=== PATIENT | male | born 1980 | race Two or more races ===

== ENCOUNTER → 2017-09-30 | Outpatient (CLI) | payer MEDICAID | END | disposition home or self-care (01) | LOC: RAD 15:03 | PROVIDERS: ATTEND Family Medicine | DX: N50.89 Other specified disorders of the male genital organs (principal); N50.82 Scrotal pain | CPT/HCPCS: 76857; 76870; 93975 ==

== ENCOUNTER → 2017-10-04 | Outpatient (CLI) | payer MEDICAID ==
[~2017-10-04] MED LIST: OMNIPAQUE 350 MG/ML, 100ML BOTTLE ONE
== END | disposition home or self-care (01) ==
LOC: RAD 11:26
PROVIDERS: ATTEND Urology
DX: N50.9 Disorder of male genital organs, unspecified (principal); C62.90 Malignant neoplasm of unspecified testis, unspecified whether descended or undescended
CPT/HCPCS: 71260; 74177; Q9967

== ENCOUNTER 2018-08-08 19:45 | Emergency (ER) | payer MEDICAID ==
[~2018-08-08] VITALS: Ht 177.8 cm; Wt 83.6 kg
[2018-08-08 20:12] VITALS: BP 135/82
--- NOTE | 2018-08-08 20:42 | NUR ---
PT PRESENTED WITH C/O TESTICULAR PAIN, SWELLING, REDNESS, HAS H/X OF TESTICULAR CANCER. 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 REQUESTING HE BE PUT ON OXYCODONE, XANAX. ALSO HAS INFECTION ON SCROTUM WITH BURNING AND REDNESS STARTED 3 DAYS AGO. REQUESTING ABX FOR THIS. MONITORS APPLIED, SIDERAILS UP X2, PROVIDED PT WITH WARM BLANKET, FAMILY AT BEDSIDE, CALL LIGHT WITHIN REACH. AWAITING ERP FOR EVAL AND ORDERS
[2018-08-08] MEDS ORDERED: DICL25TA PO (20:49)
[2018-08-08] MEDS ORDERED: MORP15TA PO (20:49)
[2018-08-08] MEDS ORDERED: ALPR0.25 PO (20:50)
== END 2018-08-08 21:34 | disposition home or self-care (01) ==
LOC: ED 21:00
DX: C62.90 Malignant neoplasm of unspecified testis, unspecified whether descended or undescended (principal); C80.1 Malignant (primary) neoplasm, unspecified; C79.82 Secondary malignant neoplasm of genital organs
CPT/HCPCS: 99283